=== PATIENT | male | born 1970 | race Hispanic/Latino ===

== ENCOUNTER 2017-05-16 19:19 | Emergency (ER) | payer OTHER ==
[2017-05-16 19:25] VITALS: BP 125/90; PULSE 103; RESP 16; TEMP 96.8; O2SAT 98
[2017-05-16] MEDS ORDERED: Lidocaine 2% w Epi 1:200,000 Pf Inj IJ STA (19:33)
--- NOTE | 2017-05-16 19:37 | ED PDOC ---
HPI: Psych/Substance Abuse Time Seen by Provider: 05/16/17 19:28 Chief Complaint (Nursing): Abnormal Skin Integrity Chief Complaint (Provider): Facial Laceration, etoh History Per: Patient, EMS Onset/Duration Of Symptoms: Mins Current Symptoms Are (Timing): Still Present Additional Complaint(s): Tylor King is a 46 year old male that was brought to ED via EMS after he fell down a set of stairs in a bar and sustained a laceration above his left eyebrow. Patient reports that he has been drinking tonight, and when asked about his general alcohol usage, he states he "drinks too much." He denies loss of consciousness. Tetanus vaccination not UTD. PMD: None Past Medical History Reviewed: Historical Data, Nursing Documentation, Vital Signs Vital Signs: Last Vital Signs Temp 96.8 F L 05/16/17 19:24 Pulse 103 H 05/16/17 19:24 Resp 16 05/16/17 19:24 BP 125/90 05/16/17 19:24 Pulse Ox 98 05/16/17 19:24 - Medical History PMH: No Chronic Diseases - Surgical History Surgical History: No Surg Hx - Family History Family History: States: No Known Family Hx - Living Arrangements Living Arrangements: Alone - Social History Current smoker - smoking cessation education provided: Yes Alcohol: > 2 Drinks/Day - Immunization History Hx Tetanus Toxoid Vaccination: No (not sure of last booster) - Allergies Allergies/Adverse Reactions: Allergies Allergy/AdvReac Type Severity Reaction Status Date / Time No Known Allergies Allergy Verified 05/16/17 19:24 Review of Systems ROS Statement: Except As Marked, All Systems Reviewed And Found Negative Skin: Positive for: Other (facial laceration) Neurological: Positive for: Other (head injury with no LOC) Psych: Positive for: Other (etoh) Physical Exam - Reviewed Nursing Documentation Reviewed: Yes Vital Signs Reviewed: Yes - Physical Exam Appears: Positive for: Well, Non-toxic, No Acute Distress Head Exam: Positive for: NORMOCEPHALIC. Negative for: ATRAUMATIC (3 cm laceration above left eyebrow. Minimal active bleeding.) Skin: Positive for: Normal Color, Warm Eye Exam: Positive for: Normal appearance, EOMI, PERRL ENT: Positive for: Normal ENT Inspection Neck: Positive for: Normal, Painless ROM Extremity: Positive for: Normal ROM Neurologic/Psych: Positive for: Alert, Oriented, Gait (steady). Negative for: Motor/Sensory Deficits - ECG O2 Sat by Pulse Oximetry: 98 (RA) Pulse Ox Interpretation: Normal - Other Rad CT head X-Ray: Read By Radiologist X-Ray Interpretation: no acute finding Medical Decision Making Medical Decision Making: Impression: 46 y/o intoxicated male with facial laceration Plan: * CT Head * Alcohol Serum * Tetanus 0.5 mL IM * Lidocaine w/ Epi 2% * Laceration Repair Glucose POC: 77, juice and sandwich given See procedure note for lac repair Patient is aware of CT results. All questions answered. 10:15 pm: Patient is awake and alert, has steady gait, stable for discharge. He was given wound care instructions. Patient was instructed to have sutures removed in 7-10 days. Scribe Attestation: Documented by Janett River, acting as a scribe for Kyara Lee PA-C. Provider Scribe Attestation: All medical record entries made by the Scribe were at my direction and personally dictated by me. I have reviewed the chart and agree that the record accurately reflects my personal performance of the history, physical exam, medical decision making, and the department course for this patient. I have also personally directed, reviewed, and agree with the discharge instructions and disposition. Procedures - Laceration/Wound Repair left eyebrow laceration Wound Length (cm): 3 Wound's Depth, Shape: into muscle Wound Explored: clean Irrigated w/ Saline (ccs): 100 Betadine Prep?: Yes Anesthesia: Lidocaine w/ Epi Volume Anesthetic (ccs): 10 Wound Debrided: moderate Wound Repaired With: Sutures Suture Size/Type: 5:0, nylon Number of Sutures: 10 Deep Layer Suture Size/Type: 5:0 (vicryl) Number Deep Layer Sutures: 8 Wound Complexity: Intermediate Sterile Dressing Applied?: Yes Splint Applied?: No Progress: Patient was uncooperative during procedure and had a hard time staying still. Wound was approximated as best as possible given that patient did not cooperate Disposition - Clinical Impression Clinical Impression: Facial laceration, Requires a booster tetanus, Alcohol intoxication, Head injury - Patient ED Disposition Is Patient to be Admitted: No Counseled Patient/Family Regarding: Studies Performed, Diagnosis, Need For Followup - Disposition Referrals: [facility] [Outside] Disposition: Routine/Home Disposition Time: 22:16 Condition: STABLE Additional Instructions: Keep wound clean and dry. Apply Neosporin once daily. Tylenol or Advil for pain as needed. Wound check 2-3 days, suture removal 7-10 days. Instructions: Facial Laceration (ED), Head Injury (ED), Care For Your Stitches (ED), Diphtheria/Acellular Pertussis/Tetanus Booster Vaccine (Tdap) (Injection) , Alcohol Intoxication (ED) Forms: [employer] (Malay)
[2017-05-16] MEDS ORDERED: Lidocaine 2% w Epi 1:100,000 Inj IJ STA (20:18)
--- NOTE | 2017-05-17 07:35 | CT ---
PROCEDURE: CT HEAD WITHOUT CONTRAST. HISTORY: trauma COMPARISON: None available. TECHNIQUE: Axial computed tomography images were obtained through the head/brain without intravenous contrast. Radiation dose: Total exam DLP = mGy-cm. This CT exam was performed using one or more of the following dose reduction techniques: Automated exposure control, adjustment of the mA and/or kV according to patient size, and/or use of iterative reconstruction technique. FINDINGS: HEMORRHAGE: No intracranial hemorrhage. BRAIN: No mass effect or edema. No atrophy or chronic microvascular ischemic changes. VENTRICLES: Unremarkable. No hydrocephalus. CALVARIUM: Unremarkable. PARANASAL SINUSES: Unremarkable as visualized. No significant inflammatory changes. MASTOID AIR CELLS: Unremarkable as visualized. No inflammatory changes. OTHER FINDINGS: None. IMPRESSION: Normal CT of the Head.
== END 2017-05-16 22:36 | disposition home or self-care (01) ==
LOC: H.ER 19:19
DX: S01.81XA Laceration without foreign body of other part of head, initial encounter (principal); W10.9XXA Fall (on) (from) unspecified stairs and steps, initial encounter; Y92.89 Other specified places as the place of occurrence of the external cause; F10.129 Alcohol abuse with intoxication, unspecified; F17.200 Nicotine dependence, unspecified, uncomplicated; Y90.8 Blood alcohol level of 240 mg/100 ml or more